=== PATIENT | male | born 1985 | race Hispanic/Latino ===

== ENCOUNTER 2020-06-12 08:51 | Emergency (ER) | payer SELFPAY ==
[2020-06-12] MEDS ORDERED: Boostrix 0.5 ML (Tdap) VIAL ONE (09:31)
[2020-06-12] MEDS ORDERED: Bacitracin 1 PK ONE (09:37)
== END 2020-06-12 10:47 | disposition home or self-care (01) ==
LOC: ERS 08:51
DX: S81.811A Laceration without foreign body, right lower leg, initial encounter (principal); Z23 Encounter for immunization; F17.210 Nicotine dependence, cigarettes, uncomplicated; W30.89XA Contact with other specified agricultural machinery, initial encounter
CPT/HCPCS: 12002; 90471; 90715

== ENCOUNTER 2020-06-24 13:13 | Emergency (ER) | payer OTHER | END 2020-06-24 13:33 | disposition home or self-care (01) | LOC: ERS 13:13 | DX: S81.812D Laceration without foreign body, left lower leg, subsequent encounter (principal) ==